=== PATIENT | male | born 1950 | race Asian ===

== ENCOUNTER 2017-08-05 23:50 | Emergency (ER) | payer OTHER ==
[~2017-08-05] VITALS: Ht 165.1 cm; Wt 68.0 kg
[2017-08-06] VITALS: Ht 165.1 cm; Wt 68.0 kg
[2017-08-06 03:01] VITALS: BP 159/101
== END 2017-08-06 03:01 | disposition home or self-care (01) ==
LOC: ED 23:50
DX: S13.4XXA Sprain of ligaments of cervical spine, initial encounter (principal); S39.012A Strain of muscle, fascia and tendon of lower back, initial encounter; I10 Essential (primary) hypertension; V43.62XA Car passenger injured in collision with other type car in traffic accident, initial encounter; Y93.I9 Activity, other involving external motion; Y92.89 Other specified places as the place of occurrence of the external cause; Y99.8 Other external cause status